=== PATIENT | female | born 1990 | race Caucasian/White ===

== ENCOUNTER 2017-02-02 06:40 | Inpatient (IN) | payer BC ==
[~2017-02-02] VITALS: Ht 165.1 cm; Wt 129.5 kg
[2017-02-02 07:00] VITALS: BP 149/92
[2017-02-02] MEDS ORDERED: ONDANSETRON PF 4 MG/2 ML VIAL. IV PRN (07:45)
[2017-02-02] MEDS ORDERED: 0.9 % SODIUM CHLORIDE 10 ML DISP.SYRIN. IV PRN (07:45)
[2017-02-02] MEDS: HYDROmorphone 2 MG/ML VIAL IV PRN ×3 (07:59→21:05)
[2017-02-02] MEDS: IV NORMAL SALINE 1000ML BAG 1,000 ML IV SCH ×2 (08:11→17:48)
--- NOTE | 2017-02-02 09:34 | PDOC1 ---
History and Physical Date of Admission Date of Admission DATE: 02/02/17 TIME: 09:28 Identification/Chief Complaint Chief Complaint twisted ankle Problems: Source Source: Caregiver, Chart review, Patient History of Present Illness History of Present Illness 26 y.o obese female with hx SZ d/o but otherwise controlled with meds , was walking yesterday, twisted her ankle, fell, and could not bear weight on that leg. Went to [place], xray shows Bimalleolar fx. Pt then transferred here. Sleepy from meds, leg elevated, pain tolerable. Mother at bedside, LAbs ok Past Medical History Cardiovascular: No pertinent hx Pulmonary: No pertinent hx GI: No pertinent hx Heme/Onc: No pertinent hx Hepatobiliary: No pertinent hx Psych: No pertinent hx Rheumatologic: No pertinent hx Infectious disease: No pertinent hx, Other (mastoiditis as a young kid) Renal/: No pertinent hx Endocrine: No pertinent hx Dermatology: Other (Hidradenitis suppurativa) Past Surgical History Past Surgical History: Other (sx bilateral armpits and underneath breasts for hidradenitis suppurativa) Family History Family History: Hypertension Social History Smoke: No ALCOHOL: social Drugs: None Current Medications Current Medications Current Medications Sodium Chloride (Normal Saline Flush) 3 ml PRN DAILY PRN IV AFTER MEDS AND BLOOD DRAWS; Start 02/02/17 at 07:45 Ondansetron HCl (Zofran) 4 mg PRN Q6HRS PRN IV NAUSEA/VOMITING; Start 02/02/17 at 07:45 Hydromorphone HCl (Dilaudid) 2 mg PRN Q2HRS PRN IV PAIN Last administered on 07:59; Start 02/02/17 at 07:45 Sodium Chloride 1,000 ml @ 100 mls/hr Q10H IV Last administered on 02/02/17 08:11; Start 02/02/17 at 07:45 Allergies Allergies: Coded Allergies: vancomycin (Verified Allergy, Intermediate, 02/02/17) ROS General: No: Chills, Night Sweats, Fatigue, Malaise, Appetite, Other PSYCHOLOGICAL ROS: No: Anxiety, Behavioral Disorder, Concentration difficultie , Decreased libido, Depression, Disorientation, Hallucinations, Hostility, Irritablity, Memory difficulties, Mood Swings, Obsessive thoughts, Physical abuse, Sexual abuse, Sleep disturbances, Suicidal ideation, Other Eyes: No Blurry vision, No Decreased vision, No Double vision, No Dry eyes, No Excessive tearing, No Eye Pain, No Itchy Eyes, No Loss of vision, No Photophobia , No Scotomata, No Uses contacts, No Uses glasses, No Other HEENT: No: Heacaches, Visual Changes, Hearing change, Nasal congestion, Nasal discharge, Oral lesions, Sinus pain, Sore Throat, Epistaxis, Sneezing, Snoring, Tinnitus, Vertigo, Vocal changes, Other ALLERGY AND IMMUNOLOGY: No: Hives, Insect Bite Sensitivity, Itchy/Watery Eyes, Nasal Congestion, Post Nasal Drip, Seasonal Allergies, Other Hematological and Lymphatic: No: Bleeding Problems, Blood Clots, Blood Transfusions, Brusing, Night Sweats, Pallor, Swollen Lymph Nodes, Other ENDOCRINE: No: Breast Changes, Galactorrhea, Hair Pattern Changes, Hot Flashes , Malaise/lethargy, Mood Swings, Palpitations, Polydipsia/polyuria, Skin Changes , Temperature Intolerance, Unexpected Weight Changes, Other Breast: No New/Changing Breast Lumps, No Nipple changes, No Nipple discharge, No Other Respiratory: No: Cough, Hemoptysis, Orthopnea, Pleuritic Pain, Shortness of breath, SOB with excertion, Sputum Changes, Stridor, Tachypnea, Wheezing, Other Cardiovascular: No Chest Pain, No Palpitations, No Orthopnea, No Paroxysmal Noc. Dyspnea, No Edema, No Lt Headedness, No Other Gastrointestinal: No Nausea, No Vomiting, No Abdominal Pain, No Diarrhea, No Constipation, No Melena, No Hematochezia, No Other Genitourinary: No Dysuria, No Frequency, No Incontinence, No Hematuria, No Retention, No Discharge, No Urgency, No Pain, No Flank Pain, No Other, No , No , No , No , No , No , No Musculoskeletal: No Gait Disturbance, No Joint Pain, No Joint Stiffness, No Joint Swelling, No Muscle Pain, No Muscular Weakness, No Pain In:, No Swelling In:, No Other Neurological: No Behavorial Changes, No Bowel/Bladder ControlChng, No Confusion , No Dizziness, No Gait Disturbance, No Headaches, No Impaired Coord/balance, No Memory Loss, No Numbness/Tingling, No Seizures, No Speech Problems, No Tremors, No Visual Changes, No Weakness, No Other Skin: No Dry Skin, No Eczema, No Hair Changes, No Lumps, No Mole Changes, No Mottling, No Nail Changes, No Pruritus, No Rash, No Skin Lesion Changes, No Other, No Acne Physical Exam General: Alert, Oriented X3, Cooperative, No acute distress HEENT: Atraumatic, PERRLA, EOMI, Mucous membr. moist/pink Lungs: Clear to auscultation Heart: S1S2, RRR, no thrills, no rubs Cardiovascular: S1, S2 Breasts: Normal, Rt breast nml w/o mass, Lt breast nml w/o mass, Nipples normal Abdomen: Normal bowel sounds, Soft, No tenderness, No hepatosplenomegaly, No masses Rectal Exam: not examined PELVIC: Nml ext genitalia Extremities: Other (R leg elevated, some swelling on foor, palpable pulses, can wiggle toes) Skin: Other (scars bilateral armpits and underneath breasts) Neuro: Normal gait, Normal speech, Strength at 5/5 X4 ext, Normal tone, Sensation intact, Cranial nerves 3-12 NL, Reflexes 2+ Psych/Mental Status: Mental status NL, Mood NL Vitals Vitals Vital Signs Date Time Temp Pulse Resp B/P (MAP) Pulse Ox O2 Delivery O2 Flow Rate FiO2 02/02/17 08:35 Nasal Cannula 02/02/17 07:00 97.7 94 20 149/92 (111) 94 97.7 VTE Prophylaxis Ordered VTE Prophylaxis Devices: Yes VTE Pharmacological Prophylaxi: Yes Assessment/Plan Assessment/Plan 1. Bimalleolar fx, closed, R, mechanical fall - initial encounter 2. OBesity 3. Hx Hidradenitis suppurative s/p sx PLAN: Admit 2 MN NPO , if no sx today, liquid diet then NPO post MN PAin control PT/OT post op labs RENÉE CALDERÓN MD Feb 02, 2017 09:34
[2017-02-02] MEDS ORDERED: LAMO200T PO (09:42)
[2017-02-02] MEDS ORDERED: DIVA500T9 PO (09:42)
[2017-02-02] MEDS ORDERED: OXCA300T PO ×2 (09:42)
[2017-02-02] MEDS ORDERED: ACETAMINOPHEN 500 MG TABLET PO PRN (09:45)
[2017-02-02] MEDS ORDERED: HYDROcodone/APAP 5/325MG 1 TAB TABLET PO PRN (09:45)
[2017-02-02] MEDS: lamoTRIgine 100 MG TABLET. PO SCH ×2 (10:00→19:15)
[2017-02-02] MEDS: OXcarbazepine 300 MG TABLET PO SCH (10:00)
[2017-02-02] MEDS: DIVALPROEX DELAYED RELEASE 500 MG TABLET.DR. PO SCH ×2 (10:00→19:15)
[2017-02-02 10:39] LABS: BASO # 0.1 x10^3/uL (0.0-0.2); BASO % 1 % (0-3); EOS % 1 % (0-3); HEMATOCRIT 38.7 % (36.0-47.0); HEMOGLOBIN 13.2 g/dL (12.0-15.5); LYMPH # 3.9 x10^3/uL (1.0-4.8); LYMPH % 34 % (24-48); MEAN CORPUSCULAR HEMOGLOBIN 30 pg (25-35); MEAN CORPUSCULAR HGB CONC 34 g/dL (31-37); MEAN CORPUSCULAR VOLUME 89 fL (79-100); MONO % 9 % (0-9); NEUT % 56 % (31-73); PLATELET COUNT 305 x10^3/uL (140-400); RED BLOOD COUNT 4.35 x10^6/uL (3.50-5.40); WHITE BLOOD COUNT 11.6 x10^3/uL (4.0-11.0)
[2017-02-02 10:45] LABS: INR 1.1 (0.8-1.1); PROTHROMBIN TIME PATIENT 13.4 SEC (11.7-14.0)
[2017-02-02 10:49] LABS: ALBUMIN 2.9 g/dL (3.4-5.0); ALBUMIN/GLOBULIN RATIO 0.8 (1.0-1.7); CALCIUM 8.1 mg/dL (8.5-10.1); CREATININE 0.7 mg/dL (0.6-1.0); GFR 102.8; POTASSIUM 4.1 mmol/L (3.5-5.1); TOTAL BILIRUBIN 0.2 mg/dL (0.2-1.0); TOTAL PROTEIN 6.7 g/dL (6.4-8.2)
[2017-02-02] MEDS ORDERED: LIDOCAINE 2% PF Vial for OR 5 ML VIAL. ONE (10:59)
[2017-02-02] MEDS ORDERED: DEXAMETHASONE SOD PHOS 20 MG/5 ML VIAL. ONE (10:59)
[2017-02-02] MEDS ORDERED: fentaNYL PF VIAL 100 MCG/2 ML VIAL ONE (10:59)
[2017-02-02] MEDS ORDERED: ONDANSETRON PF 4 MG/2 ML VIAL. ONE (10:59)
[2017-02-02] MEDS ORDERED: PROPOFOL 0 ML IV ONE (10:59)
[2017-02-02 11:00] VITALS: BP 125/78
--- NOTE | 2017-02-02 13:10 | PDOC2 ---
CONSULT Date of Consult Date of Consult DATE: 02/02/17 TIME: 12:58 Reason for Consult Reason for Consult: right ankle fracture Referring Physician Referring Physician: Dr. Herrera Identification/Chief Complaint Chief Complaint right ankle pain Problems: Source Source: Chart review, Patient History of Present Illness Reason for Visit: Ms. Beverly is a 26 year old female patient admitted with a right ankle fracture. She was walking down a steep hill, going from the [employer] to the [employer], in flip flops when she tripped and fell, injuring her right ankle at about 8:00pm last night. She was in [place] when this happened, went to the ER there and states they sent her home with a boot and pain medication. She and her mother then drove to [facility] where she was examined and transferred to [facility] She states she did have high blood pressure once about a month ago that was unexplained and a cause was not found. 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 Her pain is controlled with Dilaudid at this time. Past Medical History Cardiovascular: No pertinent hx Pulmonary: No pertinent hx CENTRAL NERVOUS SYSTEM: Seizure GI: No pertinent hx Heme/Onc: No pertinent hx Hepatobiliary: No pertinent hx Psych: No pertinent hx Rheumatologic: No pertinent hx Infectious disease: No pertinent hx, Other (mastoiditis as a young kid) Renal/: No pertinent hx Endocrine: No pertinent hx Dermatology: Other (Hidradenitis suppurativa) Past Surgical History Past Surgical History: Cholecystectomy, Tonsillectomy, Other (sx bilateral armpits and underneath breasts for hidradenitis suppurativa) Family History Family History: Diabetes, Heart Disease, Hypertension Social History No ALCOHOL: social Drugs: None Current Medications Current Medications Current Medications Sodium Chloride (Normal Saline Flush) 3 ml PRN DAILY PRN IV AFTER MEDS AND BLOOD DRAWS; Start 02/02/17 at 07:45 Ondansetron HCl (Zofran) 4 mg PRN Q6HRS PRN IV NAUSEA/VOMITING; Start 02/02/17 at 07:45 Hydromorphone HCl (Dilaudid) 2 mg PRN Q2HRS PRN IV PAIN Last administered on t 07:59; Start 02/02/17 at 07:45 Sodium Chloride 1,000 ml @ 100 mls/hr Q10H IV Last administered on 02/02/17t 08:11; Start 02/02/17 at 07:45 Acetaminophen (Tylenol) 500 mg PRN Q6HRS PRN PO MILD PAIN / TEMP; Start at 09:45 Acetaminophen/ Hydrocodone Bitart (Lortab 5/325) 1 tab PRN Q4HRS PRN PO MOD TO SEVERE PAIN; Start 02/02/17 at 09:45 Divalproex Sodium (Depakote) 500 mg BID PO ; Start 02/02/17 at 10:00 Oxcarbazepine (Trileptal) 300 mg DAILY07 PO ; Start 02/02/17 at 10:00 Oxcarbazepine (Trileptal) 600 mg HS PO ; Start 02/02/17 at 21:00 Lamotrigine (LaMICtal) 200 mg BID PO ; Start 02/02/17 at 10:00 Propofol 20 ml @ As Directed STK-MED ONCE IV ; Start 02/02/17 at 10:59; Stop at 11:00; Status DC Lidocaine HCl (Lidocaine Pf 2% Vial) 5 ml STK-MED ONCE .ROUTE ; Start 02/02/17 at 10:59; Stop 02/02/17 at 11:00; Status DC Ondansetron HCl (Zofran) 4 mg STK-MED ONCE .ROUTE ; Start 02/02/17 at 10:59; Stop 02/02/17 at 11:00; Status DC Dexamethasone Sodium Phosphate (Decadron) 20 mg STK-MED ONCE .ROUTE ; Start at 10:59; Stop 02/02/17 at 11:00; Status DC Fentanyl Citrate (Fentanyl 2ml Vial) 100 mcg STK-MED ONCE .ROUTE ; Start at 10:59; Stop 02/02/17 at 11:00; Status DC Ketorolac Tromethamine (Toradol) 30 mg Q6HRS IV ; Start 02/02/17 at 13:00; Stop 02/07/17 at 12:59 Active Scripts Active Reported Oxcarbazepine 300 Mg Tablet 600 Mg PO HS Oxcarbazepine 300 Mg Tablet 1 Tab PO DAILY07 Divalproex Sodium 500 Mg Tablet.dr 1 Tab PO BID Lamotrigine 200 Mg Tablet 1 Tab PO BID Allergies Allergies: Coded Allergies: vancomycin (Verified Allergy, Intermediate, 02/02/17) ROS General: No: Chills, Fatigue Eyes: No Decreased vision HEENT: No: Heacaches, Visual Changes, Sore Throat Hematological and Lymphatic: No: Bleeding Problems, Blood Clots Respiratory: No: Cough, Shortness of breath Cardiovascular: No Chest Pain Gastrointestinal: No Nausea, No Vomiting, No Abdominal Pain, No Diarrhea, No Constipation Genitourinary: No Dysuria, No Frequency, No Incontinence, No Hematuria Musculoskeletal: Yes Pain In: (right ankle), Yes Swelling In: (right ankle) Physical Exam General: Alert, Oriented X3, Cooperative, No acute distress HEENT: Atraumatic, EOMI Lungs: Normal air movement Heart: Regular rate Abdomen: Soft Extremities: No clubbing, No cyanosis, Normal pulses Skin: No rashes, No breakdown, No significant lesion, Other (ecchymosis medial right ankle) Neuro: Normal speech, Sensation intact Psych/Mental Status: Mental status NL, Mood NL MUSCULOSKELETAL: Other (The right ankle is swollen with ecchymosis noted medially. Calf soft and nontender. Attempted motion of right ankle is painful. Dorsiflexion and plantarflexion at toes. Dorsalis pedis pulse intact. Light touch sensation intact.) Vitals VITALS Vital Signs Date Time Temp Pulse Resp B/P (MAP) Pulse Ox O2 Delivery O2 Flow Rate FiO2 02/02/17 11:00 97.7 99 20 125/78 (94) 96 Nasal Cannula 2.0 97.7 Labs Labs Laboratory Tests Test 02/02/17 10:15 White Blood Count 11.6 x10^3/uL (4.0-11.0) Red Blood Count 4.35 x10^6/uL (3.50-5.40) Hemoglobin 13.2 g/dL (12.0-15.5) Hematocrit 38.7 % (36.0-47.0) Mean Corpuscular Volume 89 fL (79-100) Mean Corpuscular Hemoglobin 30 pg (25-35) Mean Corpuscular Hemoglobin Concent 34 g/dL (31-37) Red Cell Distribution Width 13.0 % (11.5-14.5) Platelet Count 305 x10^3/uL (140-400) Neutrophils (%) (Auto) 56 % (31-73) Lymphocytes (%) (Auto) 34 % (24-48) Monocytes (%) (Auto) 9 % (0-9) Eosinophils (%) (Auto) 1 % (0-3) Basophils (%) (Auto) 1 % (0-3) Neutrophils # (Auto) 6.4 x10^3uL (1.8-7.7) Lymphocytes # (Auto) 3.9 x10^3/uL (1.0-4.8) Monocytes # (Auto) 1.0 x10^3/uL (0.0-1.1) Eosinophils # (Auto) 0.2 x10^3/uL (0.0-0.7) Basophils # (Auto) 0.1 x10^3/uL (0.0-0.2) Prothrombin Time 13.4 SEC (11.7-14.0) Prothromb Time International Ratio 1.1 (0.8-1.1) Sodium Level 142 mmol/L (136-145) Potassium Level 4.1 mmol/L (3.5-5.1) Chloride Level 108 mmol/L (98-107) Carbon Dioxide Level 27 mmol/L (21-32) Anion Gap 7 (6-14) Blood Urea Nitrogen 5 mg/dL (7-20) Creatinine 0.7 mg/dL (0.6-1.0) Estimated GFR (Cockcroft-Gault) 102.8 BUN/Creatinine Ratio 7 (6-20) Glucose Level 89 mg/dL (70-99) Calcium Level 8.1 mg/dL (8.5-10.1) Total Bilirubin 0.2 mg/dL (0.2-1.0) Aspartate Amino Transf (AST/SGOT) 20 U/L (15-37) Alanine Aminotransferase (ALT/SGPT) 18 U/L (14-59) Alkaline Phosphatase 65 U/L (46-116) Total Protein 6.7 g/dL (6.4-8.2) Albumin 2.9 g/dL (3.4-5.0) Albumin/Globulin Ratio 0.8 (1.0-1.7) Laboratory Tests Test 02/02/17 10:15 White Blood Count 11.6 x10^3/uL (4.0-11.0) Red Blood Count 4.35 x10^6/uL (3.50-5.40) Hemoglobin 13.2 g/dL (12.0-15.5) Hematocrit 38.7 % (36.0-47.0) Mean Corpuscular Volume 89 fL (79-100) Mean Corpuscular Hemoglobin 30 pg (25-35) Mean Corpuscular Hemoglobin Concent 34 g/dL (31-37) Red Cell Distribution Width 13.0 % (11.5-14.5) Platelet Count 305 x10^3/uL (140-400) Neutrophils (%) (Auto) 56 % (31-73) Lymphocytes (%) (Auto) 34 % (24-48) Monocytes (%) (Auto) 9 % (0-9) Eosinophils (%) (Auto) 1 % (0-3) Basophils (%) (Auto) 1 % (0-3) Neutrophils # (Auto) 6.4 x10^3uL (1.8-7.7) Lymphocytes # (Auto) 3.9 x10^3/uL (1.0-4.8) Monocytes # (Auto) 1.0 x10^3/uL (0.0-1.1) Eosinophils # (Auto) 0.2 x10^3/uL (0.0-0.7) Basophils # (Auto) 0.1 x10^3/uL (0.0-0.2) Prothrombin Time 13.4 SEC (11.7-14.0) Prothromb Time International Ratio 1.1 (0.8-1.1) Sodium Level 142 mmol/L (136-145) Potassium Level 4.1 mmol/L (3.5-5.1) Chloride Level 108 mmol/L (98-107) Carbon Dioxide Level 27 mmol/L (21-32) Anion Gap 7 (6-14) Blood Urea Nitrogen 5 mg/dL (7-20) Creatinine 0.7 mg/dL (0.6-1.0) Estimated GFR (Cockcroft-Gault) 102.8 BUN/Creatinine Ratio 7 (6-20) Glucose Level 89 mg/dL (70-99) Calcium Level 8.1 mg/dL (8.5-10.1) Total Bilirubin 0.2 mg/dL (0.2-1.0) Aspartate Amino Transf (AST/SGOT) 20 U/L (15-37) Alanine Aminotransferase (ALT/SGPT) 18 U/L (14-59) Alkaline Phosphatase 65 U/L (46-116) Total Protein 6.7 g/dL (6.4-8.2) Albumin 2.9 g/dL (3.4-5.0) Albumin/Globulin Ratio 0.8 (1.0-1.7) Images Images Right ankle x-rays were reviewed. A atraumatic trimalleolar fracture is seen. There is a comminuted fracture of distal diaphysis of the fibula, without significant displacement. There is a fracture of the medial malleolus, displaced approximately 7 mm. Nondisplaced posterior malleolus fracture is seen. Assessment/Plan Assessment/Plan Right ankle trimalleolar fracture. Dr. Bowman recommended open reduction internal fixation of the ankle fracture, specifically the fibula and medial malleolus. The posterior malleolus fracture will not require fixation. We will evaluate the syndesmosis during surgery, as this may require fixation. No metal sensitivity, so stainless steel plate and screws will be used. The risks of surgery were discussed, including, infection, bleeding, blood clots, neurovascular injury, need for hardware removal, and any other potential surgical or anesthetic complications. All of the patient's questions were answered and she desires to proceed with surgery. Scheduled for tomorrow 02/03/17 at 4:30pm. JAM PERKINS Feb 02, 2017 13:09
[2017-02-02] MEDS: KETOROLAC TROMETHAMINE 30 MG/ML INJ. IV SCH ×3 (13:13→22:52)
[2017-02-02 15:00] VITALS: BP 136/75
[2017-02-02 19:20] VITALS: BP 126/71
[2017-02-02] MEDS ORDERED: OXcarbazepine 300 MG TABLET PO SCH (21:00)
[2017-02-02 22:51] VITALS: BP 120/69
[2017-02-02] MEDS: diphenhydrAMINE 50 MG/ML VIAL IVP PRN (23:17)
[2017-02-03] VITALS (11 sets, daily range): BP systolic 119–164; BP diastolic 62–105
[2017-02-03] MEDS: HYDROmorphone 2 MG/ML VIAL IV PRN ×3 (02:31→14:36)
[2017-02-03] MEDS: IV NORMAL SALINE 1000ML BAG 1,000 ML IV SCH ×3 (03:18→23:19)
--- NOTE | 2017-02-03 05:15 | ACF ---
Admission Forms Criteria MUSCULOSKELETAL DISEASE GRG Clinical Indications for Admission to Inpatient Care (Place 'X' for any and all applicable criteria): Hospital admission is needed for appropriate care of the patient because of 1 or more of the following: [X]I. Fracture, dislocation, or other musculoskeletal injury requiring inpatient care(medical) as indicated by 1 or more of the following(4)(5)(6)(7) [ ]a) Vertebral fracture requiring observation for instability or neurologic compromise (8) [ ]b) Compartment syndrome (proven or cannot be ruled out during observation level of care) (9) [ ]c) Limb-threatening injury [ ]d) Major injury requiring inpatient stabilization such as traction initiation or external fixation before internal fixation or closure of complex or open fracture [X]e) Major injury requiring inpatient treatment after emergency or observation level care (as appropriate) [ ]f) Severe pain requiring acute inpatient management [ ]g) Injury with suspicion of abuse or neglect (eg., child, dependent elderly) [ ]II. Newly diagnosed or suspected bone, joint, or orthopedic device infection (e.g., osteomyelitis, septic arthritis) needing 1 or more of the following(1)(2)(3) [ ]a) IV antibiotics that cannot be initiated in other than inpatient setting (e.g., patient too unstable or home infusion not available) [ ]b) Device removal or replacement [ ]c) Bone or soft tissue debridement [ ]d) Joint drainage (drain placement or repetitive aspirations) [ ]III. Severe rheumatologic disease (e.g., systemic lupus erythematosus, rheumatoid arthritis) with complications or comorbidities (Also use Optimal Recovery Care Criteria or General Recovery Criteria as appropriate on the basis of predominant condition), including 1 or more of the following( 10)(11)(12)(13) [ ]a) Severe infection (e.g., RESIDENT INTERN infection, sepsis) (14) [ ]b) Respiratory complications, including 1 or more of the following : [ ]i) Pleural effusion with respiratory compromise [ ]ii) Pulmonary hypertension with congestive failure [ ]iii) Respiratory failure [ ]iv) Pulmonary hemorrhage (15) [ ]c) Hematologic disease, including 1 or more of the following: [ ]i) Coagulopathy with bleeding [ ]ii) Thrombosis with hypercoagulable state [ ]iii) Thrombotic thrombocytopenic purpura [ ]d) Cerebritis with seizures, psychosis, or other severe abnormalities [ ]e) Vertebral destruction with monitoring needed for cervical myelopathy& possible respiratory compromise [ ]f) Exacerbation that requires inpatient treatment (e.g., intravenous immunosuppression) (16) [ ]g) Acute renal failure [ ]h) Cerebritis with seizures, psychosis, Altered mental status, or other neurologic abnormalities [ ]i) Pericardial effusion with tamponade [ ]j) Vertebral destruction, with monitoring needed for cervical myelopathy and possible respiratory compromise [ ]IV. Severe vasculitis with complications or comorbidities (Also use Optimal Recovery Care Criteria General Recovery Criteria as appropriate on the basis of predominant condition), including 1 or more of the following(11)(12)(17)(18)(19)(20) [ ]a) Exacerbation that requires inpatient treatment (e.g., intravenous immunosuppression) (19)(21) [ ]b) Pulmonary hemorrhage (15) [ ]c) RESIDENT INTERN vasculitis with seizures, psychosis, Altered mental status that is severe or persistent, or other severe abnormalities (22) [ ]d) Cerebral infarction [ ]e) Gastrointestinal ischemia [ ]f) Gangrene or threatened amputation [ ]g) Renal failure (16) [ ]h) Other significant complications of vasculitis ( eg., tissue or organ ischemia, organ dysfunction ) [ ]V. Severe myopathy as indicated by 1 or more of the following (28)(29) [ ]a) New onset of airway compromise or inability to swallow [ ]b) Respiratory deterioration with observation needed for impending respiratory failure [ ]c) Exacerbation that requires inpatient treatment (e.g., intravenous immunosuppression) [ ]. Severe crystal gout (arthropathy) indicated by 1 or more of the following (23)(24) [ ]a) Severe pain requiring acute inpatient management [ ]b) Exacerbation that requires inpatient treatment (e.g., intravenous treatment) [ ]VII.Rhabdomyolysis and 1 or more of the following (25)(26)(27) [ ]a) Acute renal failure [ ]b) Need for intravenous hydration after emergency or observation level care (as appropriate) [ ]c) Inability to maintain oral hydration [ ]d) Change in mental status [ ]e) Electrolyte abnormality that remains after emergency or observation level care (as appropriate) [ ]VIII Post amputation complication, as indicated by ANY ONE of the following [ ]a) Infection [ ]b) Dehiscence [ ]c) Myodesis failure [ ]IX. Severe pain requiring acute inpatient management due to musculoskeletal condition [ ]X. Musculoskeletal Disease and ALL of the following: [ ]a) Symptom or finding for which emergency and observation care have failed or are not considered appropriate (Use General Criteria: Observation Care as appropriate) [ ]b) Presence of ANY ONE of the following [ ]i) A General Admission Criteria [ ]ii) A Pediatric General Admission Criteria The original [facility] [employer] content created by [employer] [facility] [employer] has been revised. The portions of the content which have been revised are identified through the use of italic text or in bold, and [facility] has neither reviewed nor approved the modified material. All other unmodified content is copyright [facility] [employer]. Please see references footnoted in the original [facility] edition 2016 Admission Criteria Met?: Yes ABDULLAHI BORRERO Feb 03, 2017 05:15
[2017-02-03] MEDS: KETOROLAC TROMETHAMINE 30 MG/ML INJ. IV SCH ×4 (06:18→23:20)
[2017-02-03] MEDS: DIVALPROEX DELAYED RELEASE 500 MG TABLET.DR. PO SCH ×2 (07:34→21:08)
[2017-02-03] MEDS: OXcarbazepine 300 MG TABLET PO SCH ×2 (07:34→21:09)
[2017-02-03] MEDS: lamoTRIgine 100 MG TABLET. PO SCH ×2 (07:36→21:09)
[2017-02-03] MEDS: diphenhydrAMINE 50 MG/ML VIAL IVP PRN ×2 (10:22→16:42)
[2017-02-03] MEDS ORDERED: MIDAZOLAM HCL/PF 2 MG/2 ML VIAL. IV PRN ×3 (13:15→20:15)
[2017-02-03] MEDS ORDERED: PROCHLORPERAZINE 10 MG/2 ML VIAL. IV PRN ×2 (13:15→20:15)
[2017-02-03] MEDS ORDERED: MORPHINE SULFATE 4 MG/ML DISP.SYRIN. IV PRN ×3 (13:15→20:15)
[2017-02-03] MEDS ORDERED: diphenhydrAMINE 50 MG/ML VIAL IV PRN (13:15)
[2017-02-03] MEDS ORDERED: fentaNYL PF VIAL 100 MCG/2 ML VIAL IV PRN ×6 (13:15→20:15)
[2017-02-03] MEDS ORDERED: MEPERIDINE PF 25 MG/ML VIAL. IV PRN (13:15)
[2017-02-03] MEDS ORDERED: LIDOCAINE 1% 1 ML SYRINGE. ID PRN (13:15)
[2017-02-03] MEDS ORDERED: HYDROmorphone 2 MG/ML VIAL IV PRN ×2 (13:15→20:15)
--- NOTE | 2017-02-03 13:42 | PDOC ---
PROGRESS NOTES Chief Complaint Chief Complaint 1. Bimalleolar fx, closed, R, mechanical fall - initial encounter 2. Obesity, morbid, BMI 47 3. Hx Hidradenitis suppurativa History of Present Illness History of Present Illness surg to be late today Admit 2 MN PAin control PT/OT she could not ambulate with walker today "too shaky" Vitals Vitals Vital Signs Date Time Temp Pulse Resp B/P (MAP) Pulse Ox O2 Delivery O2 Flow Rate FiO2 02/03/17 11:00 98.9 106 18 131/80 (97) 93 Room Air 98.9 02/02/17 19:20 2.0 Physical Exam General: Alert, Oriented X3, Cooperative, No acute distress Heart: Regular rate Abdomen: Soft Extremities: No clubbing, No cyanosis, Normal pulses Skin: No rashes, No breakdown, No significant lesion, Other (ecchymosis medial right ankle) Comment Review of Relevant I have reviewed the following items rachelle (where applicable) has been applied. Labs Laboratory Tests Test 02/02/17 10:15 White Blood Count 11.6 x10^3/uL (4.0-11.0) Red Blood Count 4.35 x10^6/uL (3.50-5.40) Hemoglobin 13.2 g/dL (12.0-15.5) Hematocrit 38.7 % (36.0-47.0) Mean Corpuscular Volume 89 fL (79-100) Mean Corpuscular Hemoglobin 30 pg (25-35) Mean Corpuscular Hemoglobin Concent 34 g/dL (31-37) Red Cell Distribution Width 13.0 % (11.5-14.5) Platelet Count 305 x10^3/uL (140-400) Neutrophils (%) (Auto) 56 % (31-73) Lymphocytes (%) (Auto) 34 % (24-48) Monocytes (%) (Auto) 9 % (0-9) Eosinophils (%) (Auto) 1 % (0-3) Basophils (%) (Auto) 1 % (0-3) Neutrophils # (Auto) 6.4 x10^3uL (1.8-7.7) Lymphocytes # (Auto) 3.9 x10^3/uL (1.0-4.8) Monocytes # (Auto) 1.0 x10^3/uL (0.0-1.1) Eosinophils # (Auto) 0.2 x10^3/uL (0.0-0.7) Basophils # (Auto) 0.1 x10^3/uL (0.0-0.2) Prothrombin Time 13.4 SEC (11.7-14.0) Prothromb Time International Ratio 1.1 (0.8-1.1) Sodium Level 142 mmol/L (136-145) Potassium Level 4.1 mmol/L (3.5-5.1) Chloride Level 108 mmol/L (98-107) Carbon Dioxide Level 27 mmol/L (21-32) Anion Gap 7 (6-14) Blood Urea Nitrogen 5 mg/dL (7-20) Creatinine 0.7 mg/dL (0.6-1.0) Estimated GFR (Cockcroft-Gault) 102.8 BUN/Creatinine Ratio 7 (6-20) Glucose Level 89 mg/dL (70-99) Calcium Level 8.1 mg/dL (8.5-10.1) Total Bilirubin 0.2 mg/dL (0.2-1.0) Aspartate Amino Transf (AST/SGOT) 20 U/L (15-37) Alanine Aminotransferase (ALT/SGPT) 18 U/L (14-59) Alkaline Phosphatase 65 U/L (46-116) Total Protein 6.7 g/dL (6.4-8.2) Albumin 2.9 g/dL (3.4-5.0) Albumin/Globulin Ratio 0.8 (1.0-1.7) Medications Current Medications Sodium Chloride (Normal Saline Flush) 3 ml PRN DAILY PRN IV AFTER MEDS AND BLOOD DRAWS; Start 02/02/17 at 07:45 Ondansetron HCl (Zofran) 4 mg PRN Q6HRS PRN IV NAUSEA/VOMITING; Start 02/02/17 at 07:45 Hydromorphone HCl (Dilaudid) 2 mg PRN Q2HRS PRN IV PAIN Last administered on 09:22; Start 02/02/17 at 07:45 Sodium Chloride 1,000 ml @ 100 mls/hr Q10H IV Last administered on 02/03/17 12:33; Start 02/02/17 at 07:45 Acetaminophen (Tylenol) 500 mg PRN Q6HRS PRN PO MILD PAIN / TEMP; Start at 09:45 Acetaminophen/ Hydrocodone Bitart (Lortab 5/325) 1 tab PRN Q4HRS PRN PO MOD TO SEVERE PAIN Last administered on 02/02/17 19:21; Start 02/02/17 at 09:45 Divalproex Sodium (Depakote) 500 mg BID PO ; Start 02/02/17 at 10:00; Stop 02/02 at 19:26; Status DC Oxcarbazepine (Trileptal) 300 mg DAILY07 PO Last administered on 02/03/17 07: 34; Start 02/02/17 at 10:00 Oxcarbazepine (Trileptal) 600 mg HS PO ; Start 02/02/17 at 21:00; Stop 02/02/17 at 21:00; Status DC Lamotrigine (LaMICtal) 200 mg BID PO ; Start 02/02/17 at 10:00; Stop 02/02/17 at 19:26; Status DC Propofol 0 ml @ As Directed STK-MED ONCE IV ; Start 02/02/17 at 10:59; Stop at 11:00; Status DC Lidocaine HCl (Lidocaine Pf 2% Vial) 5 ml STK-MED ONCE .ROUTE ; Start 02/02/17 at 10:59; Stop 02/02/17 at 11:00; Status DC Ondansetron HCl (Zofran) 4 mg STK-MED ONCE .ROUTE ; Start 02/02/17 at 10:59; Stop 02/02/17 at 11:00; Status DC Dexamethasone Sodium Phosphate (Decadron) 20 mg STK-MED ONCE .ROUTE ; Start at 10:59; Stop 02/02/17 at 11:00; Status DC Fentanyl Citrate (Fentanyl 2ml Vial) 100 mcg STK-MED ONCE .ROUTE ; Start at 10:59; Stop 02/02/17 at 11:00; Status DC Ketorolac Tromethamine (Toradol) 30 mg Q6HRS IV Last administered on 02/03/17 12:33; Start 02/02/17 at 13:00; Stop 02/07/17 at 12:59 Cefazolin Sodium/ Dextrose 50 ml @ 100 mls/hr 1X PREOP PRN IV SEE COMMENTS; Start 02/02/17 at 13:30; Status UNV Cefazolin Sodium 3 gm/Sodium Chloride 100 ml @ 200 mls/hr 1X PREOP PRN IV PRIOR TO PROCEDURE; Start 02/03/17 at 06:00; Stop 02/03/17 at 15:00 Divalproex Sodium (Depakote) 500 mg BID@0700,1900 PO Last administered on 07:34; Start 02/03/17 at 07:00 Lamotrigine (LaMICtal) 200 mg BID@0700,1900 PO Last administered on 02/03/17 07:36; Start 02/03/17 at 07:00 Oxcarbazepine (Trileptal) 600 mg DAILY@1900 PO ; Start 02/03/17 at 19:00 Diphenhydramine HCl (Benadryl) 25 mg PRN Q6HRS PRN IVP ITCHING Last administered on 02/03/17 10:22; Start 02/02/17 at 23:15 Bacitracin 02588 unit/Sodium Chloride 1,000 ml @ 1,000 mls/hr 1X PERIOP ONCE IRR ; Start 02/03/17 at 12:00; Stop 02/03/17 at 12:59; Status DC Fentanyl Citrate (Fentanyl 2ml Vial) 50 mcg PRN Q5MIN PRN IV Acute Pain; Start 02/03/17 at 13:15; Stop 02/04/17 at 13:14; Status UNV Morphine Sulfate 4 mg PRN Q10MIN PRN IV Moderate Pain; Start 02/03/17 at 13:15 ; Stop 02/04/17 at 13:14; Status UNV Hydromorphone HCl (Dilaudid) 0.4 mg PRN Q10MIN PRN IV Moderate to severe pain; Start 02/03/17 at 13:15; Stop 02/04/17 at 13:14; Status UNV Meperidine HCl (Demerol) 12.5 mg PRN Q5MIN PRN IV SHIVERING; Start 02/03/17 at 13:15; Stop 02/04/17 at 13:14; Status UNV Prochlorperazine Edisylate (Compazine) 5 mg PRN Q6HRS PRN IV Nausea/Vomiting, 1st Choice; Start 02/03/17 at 13:15; Stop 02/04/17 at 13:14; Status UNV Diphenhydramine HCl (Benadryl) 12.5 mg PRN Q2HR PRN IV ITCHING; Start 02/03/17 at 13:15; Stop 02/04/17 at 13:14; Status UNV Midazolam HCl (Versed) 2 mg PRN 1X PRN IV PRIOR TO PROCEDURE; Start 02/03/17 at 13:15; Stop 02/04/17 at 13:14; Status UNV Midazolam HCl (Versed) 1 mg PRN 1X PRN IV PRIOR TO PROCEDURE; Start 02/03/17 at 13:15; Stop 02/04/17 at 13:14; Status UNV Fentanyl Citrate (Fentanyl 2ml Vial) 25 mcg PRN Q5MIN PRN IV X 2 DOSES FOR PAIN ; Start 02/03/17 at 13:15; Stop 02/04/17 at 13:14; Status UNV Fentanyl Citrate (Fentanyl 2ml Vial) 50 mcg PRN Q5MIN PRN IV X 2 DOSES FOR PAIN ; Start 02/03/17 at 13:15; Stop 02/04/17 at 13:14; Status UNV Ringer's Solution 1,000 ml @ 125 mls/hr Q8H IV ; Start 02/03/17 at 13:14; Stop 02/04/17 at 01:13; Status UNV Lidocaine HCl 2 ml 1X PRN PRN ID IV START; Start 02/03/17 at 13:15; Stop at 13:14; Status UNV Active Scripts Active Reported Oxcarbazepine 300 Mg Tablet 600 Mg PO HS Oxcarbazepine 300 Mg Tablet 1 Tab PO DAILY07 Divalproex Sodium 500 Mg Tablet.dr 1 Tab PO BID Lamotrigine 200 Mg Tablet 1 Tab PO BID Vitals/I & O Vital Sign - Last 24 Hours 02/02/17 02/02/17 02/02/17 02/02/17 13:42 15:00 19:20 19:21 Temp 97.9 97.9 97.9 97.9 Pulse 100 97 Resp 20 18 20 B/P (MAP) 136/75 (95) 126/71 (89) Pulse Ox 96 96 96 O2 Delivery Nasal Cannula Nasal Cannula Room Air O2 Flow Rate 2.0 2.0 2.0 02/02/17 02/02/17 02/02/17 02/02/17 20:00 20:21 21:05 21:35 Resp 20 18 Pulse Ox 93 96 93 O2 Delivery Room Air Room Air Room Air 02/02/17 02/03/17 02/03/17 02/03/17 22:51 02:31 03:01 03:20 Temp 97.9 98.7 97.9 98.7 Pulse 103 101 Resp 18 20 20 18 B/P (MAP) 120/69 (86) 164/71 (102) Pulse Ox 93 93 93 O2 Delivery Room Air Room Air Room Air 02/03/17 02/03/17 02/03/17 02/03/17 07:00 09:22 10:20 11:00 Temp 98.8 98.9 98.8 98.9 Pulse 102 106 Resp 18 18 B/P (MAP) 153/94 (113) 131/80 (97) Pulse Ox 92 93 O2 Delivery Room Air Room Air Room Air Room Air Intake and Output 02/02/17 02/02/17 02/03/17 14:59 22:59 06:59 Intake Total 200 ml 100 ml Output Total 600 ml Balance 200 ml -500 ml BARBARA CLEMONS MD Feb 03, 2017 13:42
[2017-02-03 14:58] LABS: NEG OBC UR NEG; POS OBC UR POS
[2017-02-03] MEDS ORDERED: ONDANSETRON PF 4 MG/2 ML VIAL. ONE (16:36)
[2017-02-03] MEDS ORDERED: PROPOFOL 20 ML IV ONE (16:36)
[2017-02-03] MEDS ORDERED: LIDOCAINE 2% PF Vial for OR 5 ML VIAL. ONE (16:36)
[2017-02-03] MEDS ORDERED: DEXAMETHASONE SOD PHOS 20 MG/5 ML VIAL. ONE (16:36)
[2017-02-03] MEDS ORDERED: fentaNYL PF VIAL 100 MCG/2 ML VIAL ONE ×2 (16:37→18:47)
[2017-02-03] MEDS ORDERED: ROCURONIUM 50 MG/5 ML VIAL. ONE (16:37)
[2017-02-03] MEDS ORDERED: BUPIVACAINE-EPI 0.25%-1:200000 MPF 30 ML VIAL. ONE (18:03)
[2017-02-03] MEDS: BACITRACIN 50,000 UNIT in IV NORMAL SALINE 1000ML BAG 1,000 ML IRR ONE ×2 (18:15→20:45)
[2017-02-03] MEDS ORDERED: NEOSTIGMINE METHYLSULFATE 5 MG/5 ML SYRINGE. ONE (18:35)
[2017-02-03] MEDS ORDERED: GLYCOPYRROLATE 1 MG/5 ML VIAL. ONE (18:35)
--- NOTE | 2017-02-03 18:57 | PDOC4 ---
Operative Note Operative Note Preoperative Diagnosis: Right ankle closed displaced trimalleolar fracture Postoperative Diagnosis: Same Procedures Performed: Open Treatment and Internal Fixation of Lateral and Medial Malleolus of a Trimalleolar Ankle Fracture without Fixation of the Posterior Lip Surgeon: Elizabeth Bowman M.D. Outbound Sales Specialist: Dania cShmidt PA-C Anesthesia: General Estimated Blood Loss: 25 mL Specimens: None Drains: None Complications: None Tourniquet Time: 62 minutes Implants used: Synthes locking tubular plate 12 hole stainless steel, with 3.5 mm cortical, 4.0 cancellous, and 3.5 mm locking screws. Medial malleolus small fragment stainless partially threaded 4.0 mm cancellous screws Indications for Procedure: The patient is a 26-year-old with a right ankle closed displaced trimalleolar fracture. The patient and I and her mother discussed the risks and benefits of operative treatment. Surgical fixation likely will give a better long-term outcome. We talked about the risks of the operative fixation such as the risks of bleeding, infection, blood clots, need for hardware removal, stiffness or other potential surgical or anesthetic complications. All of the patient's questions about surgery were answered and they desired to proceed. Written consent was obtained. Description of Operation: The patient was identified in the preoperative holding area. The correct right ankle was marked by the surgeon. The patient was taken to the operating room, where a general anesthetic was used. Preoperative antibiotics were given intravenously. A timeout procedure was performed. Tourniquet was used on the upper thigh. The limb was prepped sterilely with ChloraPrep solution and sterile drapes were applied with a sterile glove over the toes and heel. An Esmarch bandage was used to exsanguinate the limb and the tourniquet was inflated to 350 mmHg. The direct lateral approach to the distal fibula was used. Sharp dissection was used and Bovie electrocautery was used only as needed for hemostasis. The fracture was identified and exposed. The fracture was gapped open with some traction and with a [place] elevator, and fracture hematoma was cleared with curettes, rongeurs and irrigation. I then had my assistant designer apply longitudinal traction and internal rotation to help reduce the fracture, and a lobster claw bone clamp was used to now reduce the fracture. I contoured the very tip of the plate to fit the tip of the distal fibula. I applied cortical screws proximally and cancellous screws distally for fixation across the fracture site to stabilize it. I applied additional locking screws through the 12 hole locking plate for fixation. Satisfactory reduction and fixation was obtained. I now used the image intensifier to confirm the reduction and fixation. This was nicely stable and reduced. The direct medial curvilinear approach to the medial malleolus was used. Sharp dissection was used and Bovie electrocautery was used only as needed for hemostasis. The fracture was identified and exposed. The fracture was gapped open with some traction and with a [place] elevator, and fracture hematoma was cleared with curettes, rongeurs and irrigation. I then had my assistant designer apply a reduction force to reduce the fracture, and a tenaculum style bone clamp was used to hold the fracture reduced. Two 2.5 mm drill bits were used to stabilize the fracture, and then two partially threaded 4.0 cancellous screws were used to stabilize the fracture. Image intensifier views showed satisfactory reduction and fixation. I then stressed the syndesmosis which was stable. The posterior malleolus was assessed radiographically, and was stable to stress , and was a small enough portion of the articular surface, not to require fixation. Irrigation was used and the incision was closed in layers by my assistant designer with 0 Vicryl 2-0 Vicryl and [place]. Local anesthetic with epinephrine was injected into the skin edges. Xeroform and a sterile dressing and a splint were applied. The tourniquet was released. There were no apparent complications. ELIZABETH BOWMAN MD Feb 03, 2017 18:57
[2017-02-03] MEDS ORDERED: MORPHINE SULFATE 2 MG/ML DISP.SYRIN. IV PRN (19:15)
[2017-02-03] MEDS ORDERED: DEXTROSE 50% 25 GM / 50ML DISP.SYRIN. IV PRN (19:15)
[2017-02-03] MEDS ORDERED: CALCIUM CARBONATE 500 MG TAB.CHEW PO PRN (19:15)
[2017-02-03] MEDS ORDERED: POLYETHYLENE GLYCOL 3350 17 GM PACKET. PO PRN (19:15)
[2017-02-03] MEDS ORDERED: ONDANSETRON PF 4 MG/2 ML VIAL. IV PRN (19:15)
[2017-02-03] MEDS: IV RINGERS,LACTATED 1000ML 1,000 ML IV SCH ×2 (20:45→21:14)
[2017-02-04] VITALS (8 sets, daily range): BP systolic 116–149; BP diastolic 61–80
[2017-02-04] MEDS: HYDROcodone/APAP 7.5/325MG 1 TAB TABLET PO PRN ×4 (04:14→20:39)
[2017-02-04] MEDS ORDERED: MAGNESIUM HYDROXIDE 2,400 MG/30 ML ORAL.SUSP. PO PRN (06:00)
[2017-02-04] MEDS: OXcarbazepine 300 MG TABLET PO SCH ×2 (06:00→18:23)
[2017-02-04] MEDS: DIVALPROEX DELAYED RELEASE 500 MG TABLET.DR. PO SCH ×2 (06:00→18:19)
[2017-02-04] MEDS: KETOROLAC TROMETHAMINE 30 MG/ML INJ. IV SCH ×4 (06:00→23:39)
[2017-02-04] MEDS: lamoTRIgine 100 MG TABLET. PO SCH ×2 (06:01→18:23)
--- NOTE | 2017-02-04 07:35 | RAD ---
Indication: Postop right ankle. Time of exam 1923 hours. 2 views of the right ankle demonstrate postop changes. There is a lateral plate and numerous screws transfixing the distal fibular fracture. There are 2 partially threaded screws transfixing the medial malleolus. Overall alignment is near anatomic. The ankle is encased in a fiberglass cast. Ankle mortise is maintained. Impression: ORIF of right ankle fractures. Alignment is anatomic.
[2017-02-04] MEDS: ASPIRIN 325 MG TABLET PO SCH (08:04)
[2017-02-04] MEDS: SENNOSIDES/DOCUSATE 8.6/50MG TABLET. PO SCH (08:04)
[2017-02-04] MEDS: CHOLECALCIFEROL (VITAMIN D3) 1,000 UNIT TABLET PO SCH (08:04)
[2017-02-04] MEDS: oxyCODONE IR 5 MG TABLET PO PRN ×3 (08:05→17:05)
[2017-02-04] MEDS: IV NORMAL SALINE 1000ML BAG 1,000 ML IV SCH ×2 (10:29→19:40)
[2017-02-04 10:38] LABS: HEMATOCRIT 39.3 % (36.0-47.0); HEMOGLOBIN 13.6 g/dL (12.0-15.5)
[2017-02-04] MEDS ORDERED: IBUP-1007 PO (14:08)
[2017-02-04] MEDS ORDERED: HYDR-2762 PO (14:08)
[2017-02-04] MEDS ORDERED: POLY17PO3 PO (14:08)
--- NOTE | 2017-02-04 15:31 | PDOC ---
PROGRESS NOTES Chief Complaint Chief Complaint 1. Bimalleolar fx, closed, R, mechanical fall - initial encounter 2. Obesity, morbid, BMI 47 3. Hx Hidradenitis suppurativa History of Present Illness History of Present Illness surg yesterday, has been up PAin control OK PT/OT Vitals Vitals Vital Signs Date Time Temp Pulse Resp B/P (MAP) Pulse Ox O2 Delivery O2 Flow Rate FiO2 02/04/17 15:00 97.9 105 18 128/67 (87) 94 Nasal Cannula 2.0 97.9 Physical Exam General: Alert, Oriented X3, Cooperative, No acute distress Heart: Regular rate Abdomen: Soft Extremities: No clubbing, No cyanosis, Normal pulses Skin: No rashes, No breakdown, No significant lesion, Other (ecchymosis medial right ankle) Labs LABS Laboratory Tests Test 02/04/17 10:10 Hemoglobin 13.6 g/dL (12.0-15.5) Hematocrit 39.3 % (36.0-47.0) Mean Corpuscular Hemoglobin Concent 35 g/dL (31-37) Assessment and Plan Assessmemt and Plan DC home today if can pass PT and OT eval Problems: Comment Review of Relevant I have reviewed the following items rachelle (where applicable) has been applied. Labs Laboratory Tests Test 02/03/17 14:35 02/04/17 10:10 Urine Test Negative (NEG) Hemoglobin 13.6 g/dL (12.0-15.5) Hematocrit 39.3 % (36.0-47.0) Mean Corpuscular Hemoglobin Concent 35 g/dL (31-37) Laboratory Tests Test 02/04/17 10:10 Hemoglobin 13.6 g/dL (12.0-15.5) Hematocrit 39.3 % (36.0-47.0) Mean Corpuscular Hemoglobin Concent 35 g/dL (31-37) Medications Current Medications Sodium Chloride (Normal Saline Flush) 3 ml PRN DAILY PRN IV AFTER MEDS AND BLOOD DRAWS; Start 02/02/17 at 07:45 Ondansetron HCl (Zofran) 4 mg PRN Q6HRS PRN IV NAUSEA/VOMITING; Start 02/02/17 at 07:45; Stop 02/03/17 at 19:10; Status DC Hydromorphone HCl (Dilaudid) 2 mg PRN Q2HRS PRN IV PAIN Last administered on 14:36; Start 02/02/17 at 07:45 Sodium Chloride 1,000 ml @ 100 mls/hr Q10H IV Last administered on 02/04/17 10:29; Start 02/02/17 at 07:45 Acetaminophen (Tylenol) 500 mg PRN Q6HRS PRN PO MILD PAIN / TEMP; Start at 09:45 Acetaminophen/ Hydrocodone Bitart (Lortab 5/325) 1 tab PRN Q4HRS PRN PO MOD TO SEVERE PAIN Last administered on 02/02/17 19:21; Start 02/02/17 at 09:45 Divalproex Sodium (Depakote) 500 mg BID PO ; Start 02/02/17 at 10:00; Stop 02/02 at 19:26; Status DC Oxcarbazepine (Trileptal) 300 mg DAILY07 PO Last administered on 02/04/17 06: 00; Start 02/02/17 at 10:00 Oxcarbazepine (Trileptal) 600 mg HS PO ; Start 02/02/17 at 21:00; Stop 02/02/17 at 21:00; Status DC Lamotrigine (LaMICtal) 200 mg BID PO ; Start 02/02/17 at 10:00; Stop 02/02/17 at 19:26; Status DC Propofol 0 ml @ As Directed STK-MED ONCE IV ; Start 02/02/17 at 10:59; Stop at 11:00; Status DC Lidocaine HCl (Lidocaine Pf 2% Vial) 5 ml STK-MED ONCE .ROUTE ; Start 02/02/17 at 10:59; Stop 02/02/17 at 11:00; Status DC Ondansetron HCl (Zofran) 4 mg STK-MED ONCE .ROUTE ; Start 02/02/17 at 10:59; Stop 02/02/17 at 11:00; Status DC Dexamethasone Sodium Phosphate (Decadron) 20 mg STK-MED ONCE .ROUTE ; Start at 10:59; Stop 02/02/17 at 11:00; Status DC Fentanyl Citrate (Fentanyl 2ml Vial) 100 mcg STK-MED ONCE .ROUTE ; Start at 10:59; Stop 02/02/17 at 11:00; Status DC Ketorolac Tromethamine (Toradol) 30 mg Q6HRS IV Last administered on 02/04/17 11:59; Start 02/02/17 at 13:00; Stop 02/07/17 at 12:59 Cefazolin Sodium/ Dextrose 50 ml @ 100 mls/hr 1X PREOP PRN IV SEE COMMENTS; Start 02/02/17 at 13:30; Status UNV Cefazolin Sodium 3 gm/Sodium Chloride 100 ml @ 200 mls/hr 1X PREOP PRN IV PRIOR TO PROCEDURE; Start 02/03/17 at 06:00; Stop 02/03/17 at 15:00; Status DC Divalproex Sodium (Depakote) 500 mg BID@0700,1900 PO Last administered on 06:00; Start 02/03/17 at 07:00 Lamotrigine (LaMICtal) 200 mg BID@0700,1900 PO Last administered on 02/04/17 06:01; Start 02/03/17 at 07:00 Oxcarbazepine (Trileptal) 600 mg DAILY@1900 PO Last administered on 02/03/17 21:09; Start 02/03/17 at 19:00 Diphenhydramine HCl (Benadryl) 25 mg PRN Q6HRS PRN IVP ITCHING Last administered on 02/03/17 16:42; Start 02/02/17 at 23:15 Bacitracin 12980 unit/Sodium Chloride 1,000 ml @ 1,000 mls/hr 1X PERIOP ONCE IRR ; Start 02/03/17 at 12:00; Stop 02/03/17 at 12:59; Status DC Fentanyl Citrate (Fentanyl 2ml Vial) 50 mcg PRN Q5MIN PRN IV Acute Pain Last administered on 02/03/17 19:47; Start 02/03/17 at 13:15; Stop 02/03/17 at 20:00 ; Status DC Morphine Sulfate 4 mg PRN Q10MIN PRN IV Moderate Pain; Start 02/03/17 at 13:15 ; Stop 02/03/17 at 20:00; Status DC Hydromorphone HCl (Dilaudid) 0.4 mg PRN Q10MIN PRN IV Moderate to severe pain; Start 02/03/17 at 13:15; Stop 02/03/17 at 20:00; Status DC Meperidine HCl (Demerol) 12.5 mg PRN Q5MIN PRN IV SHIVERING; Start 02/03/17 at 13:15; Stop 02/03/17 at 20:00; Status DC Prochlorperazine Edisylate (Compazine) 5 mg PRN Q6HRS PRN IV Nausea/Vomiting, 1st Choice; Start 02/03/17 at 13:15; Stop 02/03/17 at 20:00; Status DC Diphenhydramine HCl (Benadryl) 12.5 mg PRN Q2HR PRN IV ITCHING; Start 02/03/17 at 13:15; Stop 02/03/17 at 18:00; Status DC Midazolam HCl (Versed) 2 mg PRN 1X PRN IV PRIOR TO PROCEDURE; Start 02/03/17 at 13:15; Stop 02/03/17 at 18:00; Status DC Midazolam HCl (Versed) 1 mg PRN 1X PRN IV PRIOR TO PROCEDURE; Start 02/03/17 at 13:15; Stop 02/03/17 at 18:00; Status DC Fentanyl Citrate (Fentanyl 2ml Vial) 25 mcg PRN Q5MIN PRN IV X 2 DOSES FOR PAIN ; Start 02/03/17 at 13:15; Stop 02/03/17 at 18:00; Status DC Fentanyl Citrate (Fentanyl 2ml Vial) 50 mcg PRN Q5MIN PRN IV X 2 DOSES FOR PAIN ; Start 02/03/17 at 13:15; Stop 02/03/17 at 18:00; Status DC Ringer's Solution 1,000 ml @ 125 mls/hr Q8H IV ; Start 02/03/17 at 13:14; Stop 02/04/17 at 01:13; Status DC Lidocaine HCl 2 ml 1X PRN PRN ID IV START; Start 02/03/17 at 13:15; Stop at 20:00; Status DC Dexamethasone Sodium Phosphate (Decadron) 20 mg STK-MED ONCE .ROUTE ; Start at 16:36; Stop 02/03/17 at 16:37; Status DC Lidocaine HCl (Lidocaine Pf 2% Vial) 5 ml STK-MED ONCE .ROUTE ; Start 02/03/17 at 16:36; Stop 02/03/17 at 16:37; Status DC Ondansetron HCl (Zofran) 4 mg STK-MED ONCE .ROUTE ; Start 02/03/17 at 16:36; Stop 02/03/17 at 16:37; Status DC Propofol 20 ml @ As Directed STK-MED ONCE IV ; Start 02/03/17 at 16:36; Stop at 16:37; Status DC Fentanyl Citrate (Fentanyl 2ml Vial) 100 mcg STK-MED ONCE .ROUTE ; Start at 16:37; Stop 02/03/17 at 16:38; Status DC Rocuronium [place] (Zemuron) 50 mg STK-MED ONCE .ROUTE ; Start 02/03/17 at 16:37 ; Stop 02/03/17 at 16:38; Status DC Cefazolin Sodium 50 ml @ As Directed STK-MED ONCE IV ; Start 02/03/17 at 17:08; Stop 02/03/17 at 17:09; Status DC Cefazolin Sodium/ Dextrose 50 ml @ As Directed STK-MED ONCE IV ; Start 02/03/17 at 17:08; Stop 02/03/17 at 17:09; Status DC Cefazolin Sodium 3 gm/Sodium Chloride 100 ml @ 200 mls/hr 1X ONCE IV Last administered on 02/03/17t 17:21; Start 02/03/17 at 18:00; Stop 02/03/17 at 18:43 ; Status DC Bupivacaine HCl/ Epinephrine Bitart (Sensorcaine-Epi 0.25%-1:250567 Mpf) 30 ml STK-MED ONCE .ROUTE Last administered on 02/03/17t 18:14; Start 02/03/17 at 18: 03; Stop 02/03/17 at 18:04; Status DC Glycopyrrolate (Robinul) 1 mg STK-MED ONCE .ROUTE ; Start 02/03/17 at 18:35; Stop 02/03/17 at 18:36; Status DC Neostigmine Methylsulfate 5 mg STK-MED ONCE .ROUTE ; Start 02/03/17 at 18:35; Stop 02/03/17 at 18:36; Status DC Fentanyl Citrate (Fentanyl 2ml Vial) 100 mcg STK-MED ONCE .ROUTE ; Start at 18:47; Stop 02/03/17 at 18:48; Status DC Oxycodone HCl (Roxicodone) 5 mg PRN Q3HRS PRN PO PAIN Last administered on 02/04 11:59; Start 02/03/17 at 19:15 Morphine Sulfate 2 mg PRN Q1HR PRN IV PAIN; Start 02/03/17 at 19:15 Fentanyl Citrate (Fentanyl 2ml Vial) 25 mcg PRN Q1HR PRN IV PAIN; Start at 19:15 Senna/Docusate Sodium (Senna Plus) 1 tab DAILY PO Last administered on 08:04; Start 02/04/17 at 09:00 Polyethylene Glycol (miraLAX PACKET) 17 gm PRN DAILY PRN PO CONSTIPATION; Start 02/03/17 at 19:15 Vitamin D (Vitamin D3) 1,000 unit DAILY PO Last administered on 02/04/17 08:04 ; Start 02/04/17 at 09:00 Ondansetron HCl (Zofran) 4 mg PRN Q4HRS PRN IV NAUSEA/VOMITING; Start 02/03/17 at 19:15 Calcium Carbonate/ Glycine (Tums) 500 mg PRN QID PRN PO INDIGESTION; Start at 19:15 Aspirin (Shawanda Aspirin) 325 mg DAILYWBKFT PO Last administered on 02/04/17 08: 04; Start 02/04/17 at 08:00 Magnesium Hydroxide (Milk Of Magnesia) 2,400 mg 1X PRN PRN PO CONSTIPATION; Start 02/04/17 at 06:00; Stop 02/05/17 at 05:59 Bisacodyl (Dulcolax Supp) 10 mg 1X PRN PRN OR CONSTIPATION; Start 02/04/17 at 16:00; Stop 02/05/17 at 15:59 Acetaminophen/ Hydrocodone Bitart (Lortab 7.5/325) 1 tab PRN Q4HRS PRN PO PAIN Last administered on 02/04/17 04:14; Start 02/03/17 at 19:15 Morphine Sulfate 4 mg PRN Q2HR PRN IV PAIN; Start 02/03/17 at 19:15 Acetaminophen/ Hydrocodone Bitart (Lortab 7.5/325) 2 tab PRN Q4HRS PRN PO PAIN Last administered on 02/04/17 14:52; Start 02/03/17 at 19:15 Dextrose (Dextrose 50%-Water Syringe) 12.5 gm PRN Q15MIN PRN IV SEE COMMENTS; Start 02/03/17 at 19:15 Cefazolin Sodium 3 gm/Sodium Chloride 100 ml @ 200 mls/hr Q6H IV Last administered on 02/04/17 11:58; Start 02/03/17 at 23:30; Stop 02/04/17 at 11:59 ; Status DC Morphine Sulfate 4 mg PRN Q10MIN PRN IV Moderate Pain Last administered on 02/03 20:10; Start 02/03/17 at 20:15; Stop 02/03/17 at 22:00; Status DC Hydromorphone HCl (Dilaudid) 0.4 mg PRN Q10MIN PRN IV Moderate to severe pain; Start 02/03/17 at 20:15; Stop 02/03/17 at 22:00; Status DC Midazolam HCl (Versed) 1 mg PRN 1X PRN IV PRIOR TO PROCEDURE; Start 02/03/17 at 20:15; Stop 02/03/17 at 22:00; Status DC Fentanyl Citrate (Fentanyl 2ml Vial) 25 mcg PRN Q5MIN PRN IV X 2 DOSES FOR PAIN ; Start 02/03/17 at 20:15; Stop 02/03/17 at 22:00; Status DC Fentanyl Citrate (Fentanyl 2ml Vial) 50 mcg PRN Q5MIN PRN IV X 2 DOSES FOR PAIN ; Start 02/03/17 at 20:15; Stop 02/03/17 at 22:00; Status DC Prochlorperazine Edisylate (Compazine) 5 mg PRN Q6HRS PRN IV Nausea/Vomiting, 1st Choice; Start 02/03/17 at 20:15; Stop 02/03/17 at 22:00; Status DC Active Scripts Active Hydrocodone-Apap 7.5-325 (Hydrocodone Bit/Acetaminophen) 1 Each Tablet 1 Tab PO PRN Q4HRS PRN Reported Oxcarbazepine 300 Mg Tablet 600 Mg PO HS Oxcarbazepine 300 Mg Tablet 1 Tab PO DAILY07 Divalproex Sodium 500 Mg Tablet.dr 1 Tab PO BID Lamotrigine 200 Mg Tablet 1 Tab PO BID Vitals/I & O Vital Sign - Last 24 Hours 02/03/17 02/03/17 02/03/17 02/03/17 16:40 16:50 19:11 19:11 Temp 98.5 99.6 98.5 99.6 Pulse 113 103 Resp 14 14 B/P (MAP) 156/82 153/71 Pulse Ox 95 99 O2 Delivery Room Air Room Air Mask Nasal Cannula O2 Flow Rate 10 2 02/03/17 02/03/17 02/03/17 02/03/17 19:26 19:41 19:47 19:56 Pulse 100 86 92 Resp 14 16 2 14 B/P (MAP) 167/83 174/81 175/100 Pulse Ox 92 93 94 94 O2 Delivery Room Air Nasal Cannula Nasal Cannula Nasal Cannula O2 Flow Rate 2 2 02/03/17 02/03/17 02/03/17 02/03/17 19:57 20:10 20:11 20:26 Temp 98.8 98.8 Pulse 91 95 Resp 16 14 14 B/P (MAP) 171/95 157/94 Pulse Ox 94 94 94 O2 Delivery Nasal Cannula Nasal Cannula Nasal Cannula Nasal Cannula O2 Flow Rate 2 2.0 2 2 02/03/17 02/03/17 02/03/17 02/03/17 20:50 21:05 21:20 21:35 Temp 98.8 98.8 Pulse 94 125 103 107 Resp 20 B/P (MAP) 150/90 (110) 147/105 (119) 148/87 (107) 139/79 (99) Pulse Ox 94 93 94 93 O2 Delivery Room Air Room Air Nasal Cannula Nasal Cannula O2 Flow Rate 2.0 2.0 02/03/17 02/03/17 02/03/17 02/04/17 22:05 22:35 23:05 00:05 Pulse 101 103 108 108 B/P (MAP) 140/91 (107) 126/71 (89) 136/77 (96) 118/62 (80) Pulse Ox 94 93 95 93 O2 Delivery Nasal Cannula Nasal Cannula Nasal Cannula Nasal Cannula O2 Flow Rate 2.0 2.0 2.0 2.0 02/04/17 02/04/17 02/04/17 02/04/17 01:00 03:00 07:00 11:00 Temp 99.3 98.8 97.9 98.6 99.3 98.8 97.9 98.6 Pulse 106 94 88 105 Resp 18 18 18 B/P (MAP) 116/65 (82) 126/66 (86) 117/70 (86) 149/80 (103) Pulse Ox 93 96 97 96 O2 Delivery Nasal Cannula Nasal Cannula Nasal Cannula Nasal Cannula O2 Flow Rate 2.0 2.0 2.0 2.0 02/04/17 15:00 Temp 97.9 97.9 Pulse 105 Resp 18 B/P (MAP) 128/67 (87) Pulse Ox 94 O2 Delivery Nasal Cannula O2 Flow Rate 2.0 Intake and Output 02/03/17 02/03/17 02/04/17 15:00 23:00 07:00 Intake Total 1050 ml 100 ml Output Total 20 ml Balance 1030 ml 100 ml BARBARA CLEMONS MD Feb 04, 2017 15:31
--- NOTE | 2017-02-04 15:33 | PDOC3 ---
Discharge Summary Visit Information Date of Admission: Feb 02, 2017 Date of Discharge: Feb 04, 2017 Admitting Diagnosis: ankle fx Final Diagnosis 1. Bimalleolar fx, closed, R, mechanical fall - initial encounter 2. Obesity, morbid, BMI 47 3. Hx Hidradenitis suppurativa 4. seizure d/o stable Brief Hospital Course Allergies Allergies Coded Allergies Type Severity Reaction Last Updated Verified vancomycin Allergy Intermediate 02/03/17 Yes Vital Signs Vital Signs Date Time Temp Pulse Resp B/P (MAP) Pulse Ox O2 Delivery O2 Flow Rate FiO2 02/04/17 15:00 97.9 105 18 128/67 (87) 94 Nasal Cannula 2.0 97.9 Lab Results Laboratory Tests Test 02/03/17 14:35 02/04/17 10:10 Urine Test Negative (NEG) Hemoglobin 13.6 g/dL (12.0-15.5) Hematocrit 39.3 % (36.0-47.0) Mean Corpuscular Hemoglobin Concent 35 g/dL (31-37) Laboratory Tests Test 02/04/17 10:10 Hemoglobin 13.6 g/dL (12.0-15.5) Hematocrit 39.3 % (36.0-47.0) Mean Corpuscular Hemoglobin Concent 35 g/dL (31-37) Brief Hospital Course Ms. Beverly is a 26 old female admit after fall, right ankle fracture, swelling and pain taken to OR by Dr. Bowman 02/03 Discharge Information Condition at Discharge: Improved Follow Up: Weeks Disposition/Orders: D/C to Home Scheduled Divalproex Sodium (Divalproex Sodium), 1 TAB PO BID, (Reported) Lamotrigine (Lamotrigine), 1 TAB PO BID, (Reported) Oxcarbazepine (Oxcarbazepine), 1 TAB PO DAILY07, (Reported) Oxcarbazepine (Oxcarbazepine), 600 MG PO HS, (Reported) Scheduled PRN Hydrocodone Bit/Acetaminophen (Hydrocodone-Apap 7.5-325 ), 1 TAB PO PRN Q4HRS PRN for PAIN Patient Instructions Patient Instructions time , < 30 min BARBARA CLEMONS MD Feb 04, 2017 15:33
[2017-02-04] MEDS ORDERED: BISACODYL 10 MG SUPP.RECT. PR PRN (16:00)
--- NOTE | 2017-02-04 16:21 | PDOC ---
PROGRESS NOTES Subjective Subjective Doing well. Pain is controlled. Objective Vital Signs Vital Signs Date Time Temp Pulse Resp B/P (MAP) Pulse Ox O2 Delivery O2 Flow Rate FiO2 02/04/17 15:00 97.9 105 18 128/67 (87) 94 Nasal Cannula 2.0 97.9 Physical Exam Lying in bed with right leg elevated. Postop splint dry and intact. Good dorsiflexion and plantarflexion at toes. Light touch sensation intact at toes. Labs Laboratory Tests Test 02/03/17 14:35 02/04/17 10:10 Urine Test Negative (NEG) Hemoglobin 13.6 g/dL (12.0-15.5) Hematocrit 39.3 % (36.0-47.0) Mean Corpuscular Hemoglobin Concent 35 g/dL (31-37) Laboratory Tests Test 02/04/17 10:10 Hemoglobin 13.6 g/dL (12.0-15.5) Hematocrit 39.3 % (36.0-47.0) Mean Corpuscular Hemoglobin Concent 35 g/dL (31-37) Assessment Assessment POD #1 right ankle ORIF Problems: Plan Plan of Care Continue POC including therapy and DVT ppx. From ortho standpoint, she may be discharged to home tomorrow, after working with therapy. NWB on RLE with walker. Home on Keflex 500mg PO QID for 10 days. F/u in 10-14 days. JAM PERKINS Feb 04, 2017 16:21
[2017-02-05 03:00] VITALS: BP 105/58
[2017-02-05] MEDS: IV NORMAL SALINE 1000ML BAG 1,000 ML IV SCH (05:45)
[2017-02-05] MEDS: OXcarbazepine 300 MG TABLET PO SCH (06:27)
[2017-02-05] MEDS: lamoTRIgine 100 MG TABLET. PO SCH (06:27)
[2017-02-05] MEDS: KETOROLAC TROMETHAMINE 30 MG/ML INJ. IV SCH ×2 (06:28→12:00)
[2017-02-05] MEDS: DIVALPROEX DELAYED RELEASE 500 MG TABLET.DR. PO SCH (06:28)
[2017-02-05 07:00] VITALS: BP 135/70
[2017-02-05] MEDS: CHOLECALCIFEROL (VITAMIN D3) 1,000 UNIT TABLET PO SCH (08:13)
[2017-02-05] MEDS: SENNOSIDES/DOCUSATE 8.6/50MG TABLET. PO SCH (08:13)
[2017-02-05] MEDS: ASPIRIN 325 MG TABLET PO SCH (08:13)
[2017-02-05] MEDS: oxyCODONE IR 5 MG TABLET PO PRN (08:14)
[2017-02-05] MEDS ORDERED: ERGOCALCIFEROL (VITAMIN D2) 50,000 UNIT CAPSULE. PO SCH (10:00)
--- NOTE | 2017-02-05 10:39 | PDOC ---
PROGRESS NOTES Subjective Subjective Doing better today. She says the top of her foot is sore today, but ice is helping that. Objective Vital Signs Vital Signs Date Time Temp Pulse Resp B/P (MAP) Pulse Ox O2 Delivery O2 Flow Rate FiO2 02/05/17 09:35 Room Air 02/05/17 07:00 97.9 90 18 135/70 (91) 90 2.0 97.9 Physical Exam Postoperative splint dry and intact. Good dorsiflexion and plantarflexion at toes. Neurovascularly intact distally. Labs Laboratory Tests Test 02/03/17 14:35 02/04/17 10:10 Urine Test Negative (NEG) Hemoglobin 13.6 g/dL (12.0-15.5) Hematocrit 39.3 % (36.0-47.0) Mean Corpuscular Hemoglobin Concent 35 g/dL (31-37) 25-Hydroxy Vitamin D Total 17.1 ng/mL (30.0-100.0) Assessment Assessment POD #2 right ankle ORIF Problems: Plan Plan of Care Discharge home this afternoon. Home on Keflex. Vitamin D was 17, Vitamin D2 50, 000 units weekly was ordered and Citracal, two caplets twice daily, was recommended. NWB on RLE with walker. F/u in 10-14 days. JAM PERKINS Feb 05, 2017 10:39
[2017-02-05 11:00] VITALS: BP 139/77
[2017-02-05] MEDS: HYDROcodone/APAP 7.5/325MG 1 TAB TABLET PO PRN (12:37)
== END 2017-02-05 14:30 | disposition home or self-care (01) | DRG 493 ==
LOC: EDBD 06:40 → 4 NORTH 06:40 → EDSEX 06:40
PROVIDERS: ADMIT Internal Medicine; ATTEND Internal Medicine
PROC: 0QSG04Z Reposition Right Tibia with Internal Fixation Device, Open Approach (ICD-10-PCS; 2017-02-03)
PROC: 0QSJ04Z Reposition Right Fibula with Internal Fixation Device, Open Approach (ICD-10-PCS; principal; 2017-02-03 17:00)
DX: S82.851A Displaced trimalleolar fracture of right lower leg, initial encounter for closed fracture (principal); Z68.42 Body mass index [BMI] 45.0-49.9, adult; G40.909 Epilepsy, unspecified, not intractable, without status epilepticus; E66.9 Obesity, unspecified; W01.0XXA Fall on same level from slipping, tripping and stumbling without subsequent striking against object, initial encounter; Y93.01 Activity, walking, marching and hiking; Z82.49 Family history of ischemic heart disease and other diseases of the circulatory system; Z83.3 Family history of diabetes mellitus; Z88.1 Allergy status to other antibiotic agents; E66.01 Morbid (severe) obesity due to excess calories; Z90.49 Acquired absence of other specified parts of digestive tract
CPT/HCPCS: 36415; 73600; 80053; 81025; 82306; 85014; 85018; 85027; 85610; A4215; C1713; J0690; J1100; J1170; J1200; J1885; J2270; J2405; J2704; J2710; J3010; J3490; J7030; 97116; 97530; 97535

== ENCOUNTER → 2018-02-02 | Outpatient (CLI) | payer BC ==
[2018-02-02] MEDS: GADOBUTROL 7.5 MMOL/7.5 ML VIAL IV ×2 (10:14)
== END | disposition home or self-care (01) ==
LOC: KCIC MRI 09:08
DX: R10.2 Pelvic and perineal pain (principal)
CPT/HCPCS: 72197; A9585

== ENCOUNTER 2021-11-15 07:56 | Day surgery (SDC) | payer BC ==
[~2021-11-15] VITALS: Ht 165.1 cm; Wt 118.0 kg
[~2021-11-15 07:56] MED LIST: ASPI325T8 PO; CARV12.511 PO; CRESTOR40 MG PO; DEXAMETHASONE SOD PHOS 4 MG/ML VIAL ONE; DIVA-53 PO; DIVA125T PO; HYDR-2765 PO; HYDROmorphone 2 MG/ML INJ. IVP PRN; IBUP-1007 PO; IV RINGERS,LACTATED 1000ML 1,000 ML IV SCH; LAMO200T6 PO; LIDOCAINE 1% PF 5 ML VIAL. ONE; MORPHINE SULFATE 2 MG/ML INJ. IVP PRN; ONDANSETRON PF 4 MG/2 ML VIAL. ONE; OXCA150T3 PO; OXCA300T19 PO; POLY17PO52 PO; PROCHLORPERAZINE 10 MG/2 ML VIAL. IVP PRN; PROPOFOL 10 MG/ML (20ML) VIAL. IV ONE; ROSU20TA28 PO; fentaNYL PF VIAL 100 MCG/2 ML VIAL IVP PRN; fentaNYL PF VIAL 100 MCG/2 ML VIAL ONE
[2021-11-15] MEDS ORDERED: SUCCINYLCHOLINE 200 MG/10 ML VIAL. ONE (09:03)
[2021-11-15] MEDS ORDERED: fentaNYL PF VIAL 100 MCG/2 ML VIAL ONE ×2 (09:57→10:38)
--- NOTE | 2021-11-15 10:57 | PDOC4 ---
BRIEF OPERATIVE NOTE Date: Nov 15, 2021 Pre-Op Diagnosis menorrhagia, suspected submucosal fibroid Post-Op Diagnosis normal cavity without fibroid, one tubal opening for sure but longer and narrow Procedure Performed hs d&c with myosure fluid collection system Surgeon Dr. Funk Quality Management Coordinator CHRISSIE Nicole Anesthesiologist Dr. Pabon Anesthesia Type: General Blood Loss 10cc IV Fluid see anesthesia Urine Output straight cath approx 20cc Specimens Obtained endometrial currettings Findings small nullip cervix; uterus sounded to 6.5-7cm ( one narrow cavity that was clear with def one tubal opening) tried to back off to look for a possible 2nd opening, unsure and kept coming out of very small nullip cervix when backing off; might recommend HSG to confirm uterine cavity bc fibroid definitely not seen submucosal in cavity we were in during the hysteroscopy Complications none Operative Note [id number] RAINA FUNK MD Nov 15, 2021 10:57
[2021-11-15] MEDS ORDERED: HYDROcodone/APAP 5/325MG 1 TAB TABLET PO ONE (11:30)
[2021-11-15 11:40] VITALS: BP 119/77
--- NOTE | 2021-11-15 15:12 | OP ---
DATE OF SURGERY: 11/15/2021 PREOPERATIVE DIAGNOSES: This patient is a 30-year-old with menorrhagia and suspected submucosal fibroid on sonogram. She presented today for a hysteroscopy, D and C with MyoSure. She had a very small nulliparous cervix upon dilatation and in the cavity, there was no submucosal fibroid seen. POSTOPERATIVE DIAGNOSIS: Normal cavity without a fibroid. PROCEDURE: Hysteroscopy, D and C with MyoSure fluid collection system. SURGEON: Marilu Stein MD. WEIGHT CHECKER: CHRISSIE Garner ANESTHESIOLOGIST: Dr. Pabon. ANESTHESIA: General. BLOOD LOSS: 10 mL. URINE OUTPUT: 20 mL, approximately straight cath prior to procedure. IV FLUIDS: Please see anesthesia note. SPECIMENS: Endometrial curettings. FINDINGS: A small nulliparous cervix. A cervix sounded to 6.5-7 cm. I did get in one narrow cavity that was absolutely clear. There was some tissue, but otherwise absolutely clear, but it was long and cylindrical and definitely one tubal opening. I tried to back off to look for a second possible opening to see if maybe she had a septum or if it was a bicornuate that when I kept coming out that small nulliparous cervix, the scope kept popping out into the vagina, so I was unable to see if there was a second opening, but for sure the cavity we were in did not have any other abnormalities other than it looked long and cylindrical with definitely one tubal opening, so I may suggest an HSG just to confirm the shape of the cavity and see if there is a second one or not and if there is a second tube, because I was only able to identify one for sure tubal opening of the cavity I saw.. COMPLICATIONS: None. DESCRIPTION OF PROCEDURE: This patient was taken to the operating room where general anesthesia was placed. The patient was placed in dorsal lithotomy position in [facility]. The patient's vagina was prepped and draped in the normal sterile fashion and a straight cath urine was done prior to my arrival. Upon my arrival, a time-out was performed. Once everyone agreed on the patient, the site, the procedure, the procedure was initiated. The weighted speculum would not fit in the patient's vagina. Her hymen was intact. I used the back end of a retractor posteriorly and a Kylah anteriorly to grab the cervix even that I could barely see her cervix and get it, so I ended up getting a pediatric speculum to do the case. It was very, very tiny. Once we got in, I was able to get the tenaculum on the anterior lip of the cervix. She was dilated up to a 5 with the Hegar dilators. The scope would not pass in. I had to go up to a 6-7. It was very tight, but I was able to get in and found her to 6.5-7 cm, got the scope in with the above findings. Initially all I could see was tissue, which was at the cervical opening and I could see that. We got out the tissue, but it was a clean cavity. One tubal ostia for sure, but it looks long and cylindrical in shape instead of opening up wide with 2 openings, almost like a bicornuate or unicornuate or something uterus. When I backed off in the cervix was so narrow and I kept popping out of this little tiny cervix and I could not identify another opening, so again I might recommend an HSG to evaluate the uterine cavities. No other complications at all, just endometrial curettings as the specimen. Tenaculum was removed. No active bleeding. Speculum was removed. She did have a tiny tear right at the introitus that was hemostatic and that was from me trying to place the initial speculum where she was split with her hymen intact, but there was no active bleeding. No sutures were placed. The patient was awakened from anesthesia and has been brought to recovery room in stable condition. LATIA/ALBER DR: Baldomero TID: [id number]
--- NOTE | 2021-11-16 17:15 | PATHOLOGY ---
[facility] Accession Number: [id number] . 01 Material submitted: . endometrium - ENDOMETRIAL TISSUE . 01 Clinical history: . MENORRHAGIA ABNORMAL . 02 Diagnosis: Endometrial biopsy: - Blood clot containing fragments of inactive/atrophic pattern endometrium and focal underlying myometrial tissue showing low-grade chronic endometritis. (JPM:eric; 11/16/2021) MBR 11/16/2021 1558 Local . 02 Comment: There is no evidence of hyperplasia or malignancy. (JPM:eric; 11/16/2021) . 02 Electronically signed: . Jamie Hagan MD, Pathologist NPI- [id number] . 01 Gross description: . The specimen is received in formalin, labeled "Shannon Beverly, endometrial tissue". Received are multiple segments of pale vargas to red-brown tissue admixed with mucoid material measuring 4.7 x 2.7 x 0.3 cm in aggregate dimensions. The specimen is filtered and entirely submitted in cassette A1-A2. ([facility]; 11/15/2021) NRI/NRI 11/15/2021 2156 Local . 02 Pathologist provided ICD-10: N71.1 . 02 CPT . 967198 Specimen Comment: A courtesy copy of this report has been sent to [phone], [phone] Specimen Comment: [id number] Specimen Comment: Report sent to / DR ELIANE Specimen Comment: A duplicate report has been generated due to demographic updates. Performed at: 01 [facility] [address], [place], [place] [id number] MD Yassine Braun MD Phone: [phone] Performed at: 02 [facility] [address], [place] [id number] MD Jamie Hagan MD Phone: [phone]
== END 2021-11-15 12:27 | disposition home or self-care (01) ==
LOC: SURG 07:56
PROVIDERS: ATTEND Obstetrics & Gynecology
DX: N71.1 Chronic inflammatory disease of uterus (principal); I10 Essential (primary) hypertension; E78.00 Pure hypercholesterolemia, unspecified; Z90.49 Acquired absence of other specified parts of digestive tract; Z98.890 Other specified postprocedural states; Z79.899 Other long term (current) drug therapy; Z88.8 Allergy status to other drugs, medicaments and biological substances
CPT/HCPCS: 58558; 81025; A4930; J0330; J1100; J2405; J2704; J3010; J3490; 88305

== ENCOUNTER → 2021-12-07 | Outpatient (CLI) | payer BC ==
[2021-11-15 11:40] VITALS: BP 119/77
[~2021-12-07] MED LIST changes: +CONTRAST GIVEN. MC PRN; -DEXAMETHASONE SOD PHOS 4 MG/ML VIAL ONE; -HYDROmorphone 2 MG/ML INJ. IVP PRN; +IOHEXOL 300 MG/ML 50 ML VIAL. INT UTERIN ONE; -IV RINGERS,LACTATED 1000ML 1,000 ML IV SCH; -LIDOCAINE 1% PF 5 ML VIAL. ONE; -MORPHINE SULFATE 2 MG/ML INJ. IVP PRN; -ONDANSETRON PF 4 MG/2 ML VIAL. ONE; -PROCHLORPERAZINE 10 MG/2 ML VIAL. IVP PRN; -PROPOFOL 10 MG/ML (20ML) VIAL. IV ONE; -fentaNYL PF VIAL 100 MCG/2 ML VIAL IVP PRN; -fentaNYL PF VIAL 100 MCG/2 ML VIAL ONE
--- NOTE | 2021-12-07 12:29 | RAD ---
DG HYSTEROSALPINGOGRAM W/FLUORO History: Reason: UTERINE FIBROIDS, BICORNATE UTERUS OMNI 300 15CC, 1.5 MIN FLUORO TIME COMPARISON: MRI February 02, 2018. Ultrasound October 08, 2021. TECHNIQUE: Patient was informed of the risks to include pain, infection, and bleeding. All questions were answered. Patient signed a written consent form for hysterosalpingogram. Patient was placed in a supine position on the fluoroscopy table. Speculum was inserted and cervix was cleansed with Betadin e solution. HSG catheter was inserted and secured with balloon inflation. Contrast was injected durin g fluoroscopic visualization, 8 cc of Omnipaque contrast. The balloon was deflated and catheter remov ed. Speculum was removed. There were no immediate complications. FINDINGS: Abnormal appearance of the endometrial canal small saccular outpouchings noted on initial i maging. Additional contrast was injected with mild filling of the bilateral fallopian tubes. There is indention of the mid aspect of the uterus. No free spill into the peritoneal cavity. Fluoroscopy time: 1.5 seconds, 12 images. IMPRESSION: 1. Abnormal hysterosalpingogram with irregular outpouchings into the myometrium and indention of the mid aspect. Findings may relate to adenomyosis and potential uterine masses contributing to interven tion. Recommend further clinical evaluation and correlation with intraoperative findings. 2. Nonfilling of bilateral fallopian tubes. Electronically signed by: Timothy Pryor DO (12/07/2021 12:26 PM) [id number]
== END | disposition home or self-care (01) ==
LOC: RAD 09:27
PROVIDERS: ATTEND Obstetrics & Gynecology
DX: D25.0 Submucous leiomyoma of uterus (principal); Q51.3 Bicornate uterus; I10 Essential (primary) hypertension; E78.00 Pure hypercholesterolemia, unspecified; Z90.49 Acquired absence of other specified parts of digestive tract; Z79.899 Other long term (current) drug therapy; Z98.890 Other specified postprocedural states; Z88.8 Allergy status to other drugs, medicaments and biological substances
CPT/HCPCS: 36415; 58340; 74740; 84702

== ENCOUNTER → 2022-01-04 | Outpatient (CLI) | payer BC ==
[~2022-01-04] MED LIST changes: -CONTRAST GIVEN. MC PRN; +GADOTERATE 7.5 MMOL/15ML VIAL. IVP ONE; -IOHEXOL 300 MG/ML 50 ML VIAL. INT UTERIN ONE
--- NOTE | 2022-01-04 14:07 | KCIC ---
INDICATION: Screening for osteopenia/osteoporosis. Reason: [facility] use of depo provera / Spl. Inst ructions: / History: COMPARISON: None. TECHNIQUE: Bone densitometry was performed through the lumbar spine and proximal femur. IMPRESSION: Lumbar Spine: BMD: 1.24 T-Score: 1.7 Range: Normal Proximal Femur: BMD: 0.87 T-Score: -0.6 Range: Normal World Health Organization Criteria for Bone Density: T-Score: > -1.0: Normal Range < -1.0 to -2.5: Osteopenic Range < -2.5: Osteoporotic Range Electronically signed by: Godwin Allison MD (01/04/2022 2:04 PM) [id number]
--- NOTE | 2022-01-08 16:34 | KCIC ---
INDICATION: Reason: FIBROIDS / Spl. Instructions: / History: Fibroids and heavy bleeding. 22cc Clar iscan COMPARISON: January 2018 MRI and November 2021 hysterosalpingogram. Ultrasound from September 2019 TECHNIQUE: MRI images are obtained of the pelvis with and without intravenous contrast. FINDINGS: T2 hyperintense lesion at the left ovary measuring 25 mm which could be a dominant follicle or small cyst. Urinary bladder is partially distended. Within the endometrial region there is repeat demonstration of an area of low T2 signal intensity jadon trally. This currently measures up to about 15 mm in thickness and was about 32 mm in thickness on pr ior MRI from January 2018. This extends through the longitudinal extent of the endometrium which is appr oximately 52 mm longitudinally. This region is T1 hyperintense which was also seen on prior examinati on. Numerous bilateral ovarian follicles. IMPRESSION: * Masslike thickening of the endometrial stripe is again seen which appears low signal intensity on T2-weighted images and high signal intensity on T1-weighted images. Possible causes would include re d degeneration of a fibroid involving the endometrial region with causes such as hemorrhage within th e endometrial stripe again a differential consideration. Causes such as stenosis or a cervical lesion are not excluded given this finding. Given the intrinsic T1 high signal intensity is difficult to te ll if there is any associated enhancement. This finding was also seen on prior examination appears de creased in size compared to prior but persists. Electronically signed by: Godwin Allison MD (01/08/2022 4:32 PM) [id number]
== END ==
LOC: KCIC DEXA 10:17
PROVIDERS: ATTEND Obstetrics & Gynecology
DX: N85.8 Other specified noninflammatory disorders of uterus (principal); N83.02 Follicular cyst of left ovary; N83.01 Follicular cyst of right ovary; D25.9 Leiomyoma of uterus, unspecified; N92.0 Excessive and frequent menstruation with regular cycle; N94.6 Dysmenorrhea, unspecified; Z79.3 Long term (current) use of hormonal contraceptives
CPT/HCPCS: 72197; 77080; A9575